=== PATIENT | female | born 1995 | race Caucasian/White ===

== ENCOUNTER 2017-03-15 09:35 | Emergency (ER) | payer OTHER ==
[~2017-03-15] VITALS: Ht 152.4 cm; Wt 120.5 kg
[~2017-03-15 09:35] MED LIST: PHEN30TA41 PO
[2017-03-15 10:16] LABS: BASOPHILS # (AUTO) 0.22 K/uL (0.00-0.20); BASOPHILS % (AUTO) 1.5 % (0.0-2.0); EOSINOPHILS # (AUTO) 0.01 K/uL (0.00-0.70); EOSINOPHILS % (AUTO) 0.04 % (1.0-6.0); HEMATOCRIT 41.5 % (36-46); HEMOGLOBIN 13.5 g/dL (12.0-16.0); LYMPHOCYTES # (AUTO) 1.5 K/uL (1.0-4.8); LYMPHOCYTES % (AUTO) 10.2 % (22.0-44.0); MEAN CORPUSCULAR HEMOGLOBIN 26.1 pg (26.0-34.0); MEAN CORPUSCULAR HGB CONC 32.6 G/dL (31.0-37.0); MEAN CORPUSCULAR VOLUME 80 fL (80-100); MONOCYTES # (AUTO) 0.6 K/uL (0.1-1.0); NEUTROPHILS # (AUTO) 12.2 K/uL (1.8-7.7); NEUTROPHILS % (AUTO) 84.2 % (40.0-70.0); PLATELET COUNT (AUTO) 521 K/uL (150-450); RED BLOOD CELL COUNT(AUTO) 5.16 MIL/uL (4.00-5.20); RED CELL DISTRIBUTION WIDTH 16.7 % (11.5-14.5); WHITE BLOOD COUNT (AUTO) 14.5 K/uL (4.5-11.0)
[2017-03-15 10:24] LABS: GLUCOSE, URINE (UA) NEGATIVE (NEGATIVE); KETONES,URINE NEGATIVE (NEGATIVE); LEUKOCYTE ESTERASE ,URINE NEGATIVE (NEGATIVE); OCCULT BLOOD,URINE NEGATIVE (NEGATIVE); PROTEIN,URINE NEGATIVE (NEGATIVE)
[2017-03-15 10:24] LABS: ANION GAP 10 mmol/L (8-16); CALCIUM, TOTAL 8.9 mg/dL (8.8-10.5); CARBON DIOXIDE 24 mmol/L (22-29); CHLORIDE 99 mmol/L (98-107); CREATININE 0.74 mg/dL (0.60-1.30); GLOMERULAR FILTR. RATE CALC > 60 mL/min (>60); POTASSIUM 3.9 mmol/L (3.5-5.1); SODIUM SERUM 133 mmol/L (136-145); UREA NITROGEN, BLOOD 7 mg/dL (7-18)
[2017-03-15 10:25] LABS: APPEARANCE,URINE CLOUDY (CLEAR)
[2017-03-15 10:26] LABS: ADD UA MICROSCOPIC YES
[2017-03-15 10:32] LABS: ALANINE AMINOTRANSFERASE 45 U/L (12-78); ALBUMIN 3.7 g/dL (3.4-5.0); ASPARTATE AMINOTRANSFERASE 17 U/L (15-37); BILIRUBIN,TOTAL 0.2 mg/dL (0.1-1.0); TOTAL PROTEIN, SERUM 7.7 g/dL (6.4-8.2)
[2017-03-15 10:34] LABS: RBC,URINE None Seen /HPF (0-2); SQUAMOUS EPITHELIAL CELL,UR Moderate /LPF (None Seen); WBC,URINE 0-2 /HPF (0-5)
[2017-03-15] MEDS ORDERED: SODIUM CHLORIDE 0.9% 1,000 ML IV ONE (12:15)
[2017-03-15] MEDS ORDERED: KETOROLAC TROMETHAMINE 30 MG/ML VIAL IVP ONE (12:15)
[2017-03-15] MEDS ORDERED: ONDANSETRON HCL 4 MG/2 ML VIAL IVP ONE (12:15)
[2017-03-15] MEDS ORDERED: SODIUM CHLORIDE 0.9% 100 ML ONE (12:25)
[2017-03-15] MEDS ORDERED: IOVERSOL 350 MG/ML 150 ML VIAL ONE (12:25)
[2017-03-15 14:30] VITALS: BP 119/68
[2017-03-15] MEDS ORDERED: PANTOPRAZOLE SODIUM 40 MG/VIAL IVP ONE (14:30)
== END 2017-03-15 14:56 | disposition home or self-care (01) ==
LOC: EMS 09:36
DX: K29.70 Gastritis, unspecified, without bleeding (principal); E66.01 Morbid (severe) obesity due to excess calories; Z68.43 Body mass index [BMI] 50.0-59.9, adult
CPT/HCPCS: 36415; 74177; 80053; 81001; 83690; 84703; 85025; 96361; 96374; 96375; 99285; C9113; J1885; J2405; J7030; J7050; Q9967

== ENCOUNTER 2020-11-05 18:26 | Emergency (ER) | payer OTHER ==
[~2020-11-05] VITALS: Ht 154.9 cm; Wt 134.6 kg
[2020-11-05 19:47] VITALS: BP 147/91
== END 2020-11-05 19:47 | disposition home or self-care (01) ==
LOC: EMS 18:28
DX: H61.22 Impacted cerumen, left ear (principal); Z90.89 Acquired absence of other organs
CPT/HCPCS: 69210; 99284; Z7502

== ENCOUNTER 2022-12-03 23:31 | Emergency (ER) | payer OTHER ==
[~2022-12-03] VITALS: Ht 154.9 cm; Wt 134.6 kg
[~2022-12-03 23:31] MED LIST changes: +PHEN30TA PO; -PHEN30TA41 PO
[2022-12-04 01:39] VITALS: BP 133/78
== END 2022-12-04 01:43 | disposition home or self-care (01) ==
LOC: EMS 23:32
DX: H61.23 Impacted cerumen, bilateral (principal); E03.9 Hypothyroidism, unspecified; Z90.49 Acquired absence of other specified parts of digestive tract; H54.8 Legal blindness, as defined in USA
CPT/HCPCS: 69210; 99284; Z7502